=== PATIENT | male | born 1945 | race Caucasian/White ===

== ENCOUNTER 2017-01-02 10:43 | Inpatient (IN) | payer OTHER, MEDICARE ==
--- NOTE | ~2017-01-02 | CN ---
Consultation Report [facility] [address] [place]. [address] NAME: ERLIN THOMAS : 43 STATUS : ADM IN [facility]#: [id number] AGE: 71 ADM/REG DATE : 01/02/17 MR#: [id number] REPORT SERV DATE: 01/03/17 DICTATED BY: RAMÓN DAS V. DATE: 01/02/17 REPORT STATUS : Draft TRANSCRIBED BY: MODL DATE: 01/02/17 RENAL CONSULT DATE OF CONSULTATION: 01/02/2017 REASON FOR CONSULTATION: Consultation regarding advanced chronic kidney disease. HISTORY OF PRESENT ILLNESS: Mr. Thomas is a 71-year-old gentleman status post living unrelated donor transplant in 2003 and also status post heart transplant in 1994. He has chronic kidney disease stage 5 with progressive azotemia and uremic symptoms. He was admitted today by Dr. Soni for access creation and PermCath placement. The patient has been having some worsening fatigue and his appetite has been less than robust. Currently, he denies any nausea or vomiting, but he does have some lower extremity discomfort. PAST MEDICAL HISTORY: 1. Prior ESRD, status post renal transplant as described above. 2. Hypertension. 3. CHF with EF of 35%, coronary artery disease, history of biventricular pacemaker placement, history of heart transplant as described above, now status post fistula creation and PermCath placement. ALLERGIES: INCLUDE CLONIDINE AND COREG. SOCIAL HISTORY: . No alcohol or tobacco use. HOME MEDICATIONS: Tylenol, amlodipine, baby aspirin, Coenzyme Q10, Colace, Trusopt eye drops, Cardura, famotidine, finasteride, Xalatan eye drops, prednisone 5 mg daily, Florastor, sodium bicarbonate, Prograf 2 mg twice a day, torsemide 100 mg twice a day, and Fiber-Lax. REVIEW OF SYSTEMS: All review of systems are negative except as described above. FAMILY HISTORY: Negative for any chronic kidney disease. PHYSICAL EXAMINATION: VITAL SIGNS: The patient was afebrile with a heart rate of 79, blood pressure 133/75. GENERAL: He is a pleasant elderly gentleman with no increased work of breathing. HEENT: Pupils equal, round, and reactive to light. Sclerae are anicteric. Oropharynx is clear with no lesions. NECK: Trachea midline. No thyromegaly. No supraclavicular nodes. No axillary lymph nodes. CHEST: Few decreased breath sounds in the bases bilaterally. Regular rate and rhythm. No rub. ABDOMEN: Soft, nondistended. Bowel sounds are physiologic. Right IJ PermCath in place Consultation Report [facility] [address] [place]. [address] NAME: ERLIN THOMAS : 43 STATUS : ADM IN [facility]#: [id number] AGE: 71 ADM/REG DATE : 01/02/17 MR#: [id number] REPORT SERV DATE: 01/03/17 DICTATED BY: RAMÓN DAS V. DATE: 01/02/17 REPORT STATUS : Draft TRANSCRIBED BY: MODL DATE: 01/02/17 without drainage, left forearm AV fistula. Incision site is well approximated, clean and dry. EXTREMITIES: Trace to 1+ pitting edema in lower extremities. SKIN: Warm and dry. No lower extremity rash or lesions. LABORATORY DATA: Labs are pending from this hospital stay. Most recent creatinine in our office was 4.8 on 12/30/2016. Potassium was 3.8. IMPRESSION: A 71-year-old gentleman with now end-stage renal disease, in need of dialysis initiation. He also has chronic lower extremity discomfort, which he attributes to his poor renal function. The patient had successful placement of the above mentioned access procedures with the intent to start hemodialysis this admission. PLAN: 1. Plan for dialysis tomorrow using the right IJ PermCath. 2. Labs to be obtained with dialysis. 3. Hepatitis study. Hepatitis B surface antigen specifically to be done with dialysis. 4. The patient states he has a dialysis slide at the [facility] on 01/05/2017 at 1:15 p.m. Thank you for allowing us to participate in the care of this patient. MICHEL/NOA Ramón Das M.D. / [id number] CC: Sarabjit Soni M.D.
--- NOTE | ~2017-01-02 | OP ---
Record Of Operation [facility] [address] [place]. [address] NAME: ERLIN THOMAS : 43 STATUS : ADM IN PAT#: [id number] AGE: 71 ADM/REG DATE : 01/02/17 MR#: [id number] REPORT SERV DATE: 01/02/17 DICTATED BY: SARABJIT SONI DATE: 01/02/17 REPORT STATUS : Draft TRANSCRIBED BY: MODL DATE: 01/02/17 DATE OF PROCEDURE: 01/02/2017 PREOPERATIVE DIAGNOSIS: End-stage renal disease. POSTOPERATIVE DIAGNOSIS: End-stage renal disease. PROCEDURES: 1. Left radiocephalic fistula. 2. PermCath placement right IJ. SURGEON: Sarabjit Soni M.D. ANESTHESIA: Local with sedation. COMPLICATIONS: None. BLOOD LOSS: Minimal. HISTORY: The patient is a 71-year-old male in need of access for dialysis. He was felt to benefit from PermCath placement and fistula placement. We discussed with the patient in detail. He expressed understanding and desire to proceed. DESCRIPTION OF PROCEDURE: The patient was taken to the operating room and placed in the supine position. Given IV sedation with complication, left arm, chest and neck were prepped and draped in sterile fashion. Ultrasound confirmed adequate cephalic vein to the wrist on the left. 1% lidocaine was infiltrated in the skin and subcutaneous tissues at the wrist and a longitudinal incision created. Dissection was performed to identify the cephalic vein which was of good size. It measured 3 mm. It was freed circumferentially at a branch point. Attention was turned medially and dissection performed to identify the radial artery which was freed circumferentially. This was measured 2.5 mm. The patient was given 3000 units of heparin intravenously. The vein was dissected distally as possible, ligated with clips, divided proximal to the clips, and spatulated through the branch point to create a wide mouth for anastomosis. The artery was controlled proximally and distally with vascular clamps. An 11 blade was used to create arteriotomy, which was extended with Berkowitz scissors. The vein was sewn end-to-side artery with running 6-0 Prolene suture. Upon completion, flow was restored. The vein was dissected proximally. Distal branches were identified and controlled with clips and divided. The vein developed an excellent thrill. A single bleeding point along the anastomosis was controlled with 6-0 Prolene suture. Fibrillar was placed in the wound. Once hemostasis felt to be adequate, subcutaneous tissues were closed with 3-0 Vicryl suture and skin closed with 4-0 Monocryl suture. Attention was turned to the right neck. Ultrasound confirmed patent internal jugular vein by compression. 1% lidocaine was infiltrated. Under ultrasound guidance, 18-gauge needle placed into the internal jugular vein. Wire was passed into the SVC and IVC which was confirmed with fluoroscopy. The needle was removed. A site for PermCath exit was chosen on Record Of Operation [address] [address] NAME: ERLIN THOMAS : 43 STATUS : ADM IN PAT#: [id number] AGE: 71 ADM/REG DATE : 01/02/17 MR#: [id number] REPORT SERV DATE: 01/02/17 DICTATED BY: SARABJIT SONI DATE: 01/02/17 REPORT STATUS : Draft TRANSCRIBED BY: MODL DATE: 01/02/17 the chest wall. 1% lidocaine was infiltrated here. 11 blade was used to create an exit site for the PermCath and to enlarge the access site. A 24 curved PermCath was tunneled from the exit site to the access site. Under fluoroscopic guidance, the peel-away sheath and dilator passed over the wire into the SVC. The wire and dilator removed. The catheter was placed through the peel-away sheath. The sheath was peeled away without difficulty. Both ports aspirated and flushed without difficulty. They were locked with full strength heparin. The access site and exit site were closed with 4-0 Monocryl suture. The PermCath was secured to the chest wall with Ethilon suture. Sterile dressing applied. The patient tolerated the procedure well. He will be taken to recovery room and admitted for initiation of dialysis. USMAN/NOA Sarabjit Soni M.D. / [id number] CC: Sarabjit Soni M.D.
--- NOTE | ~2017-01-02 | HP ---
History And Physical [address] [place]. [address] NAME: ERLIN THOMAS : 43 STATUS : ADM IN [facility]#: [id number] AGE: 71 ADM/REG DATE : 01/02/17 MR#: [id number] REPORT SERV DATE: 01/02/17 DICTATED BY: YAZMIN SONI DATE: 01/02/17 REPORT STATUS : Draft TRANSCRIBED BY: MODL DATE: 01/02/17 DATE OF ADMISSION: 01/02/2017 HISTORY: The patient is a 71-year-old male with a history of renal transplant and heart transplant. He needs to initiate dialysis due to failure of kidney transplant. He presents today for PermCath placement and fistula placement. He has no current complaints. REVIEW OF SYSTEMS: He denies any fever, chills, or systemic complaints. He denies chest pain or palpitations. He denies shortness of breath or cough. He denies any GI complaints. MEDICATIONS: Listed in full on the DEC. ALLERGIES: LISTED IN FULL ON THE DEC. ILLNESSES: End-stage renal disease, hypertension, CHF, and history of heart and kidney transplant. SURGICAL HISTORY: Significant for heart transplant, kidney transplant, previous left arm fistula, cholecystectomy, and tonsillectomy. SOCIAL HISTORY: Remote tobacco use. FAMILY HISTORY: Noncontributory. PHYSICAL EXAMINATION: GENERAL: The patient is in no distress. VITAL SIGNS: Blood pressure 124/73 and pulse 77. LUNGS: Clear. HEART: Regular. NEUROLOGIC: He is alert and oriented. Preserved motor function in bilateral lower extremities. He has a palpable radial pulses bilaterally. Vein mapping from our office showed adequate cephalic vein in the left arm for fistula placement. IMPRESSION: End-stage renal disease in need of dialysis initiation. We are going to plan a PermCath to initiate dialysis and a left arm fistula for long-term dialysis access. This was discussed in detail with the patient. He expressed understanding and desired to proceed. USMAN/NOA Yazmin History And Physical [address] [place]. [address] NAME: ERLIN THOMAS : 43 STATUS : ADM IN PAT#: [id number] AGE: 71 ADM/REG DATE : 01/02/17 MR#: [id number] REPORT SERV DATE: 01/02/17 DICTATED BY: YAZMIN SONI DATE: 01/02/17 REPORT STATUS : Draft TRANSCRIBED BY: MODL DATE: 01/02/17 Murray Soni M.D. / [id number] CC: Yazmin Soni M.D. NO PCP
[~2017-01-02 10:43] MED LIST: ASAB PO; AUG500 PO; CARDU2 PO; CO Q-10200 MG PO; COQ-1010 MG PO; COREG12 PO; COREG3 PO; COREG6 PO; DEMA100 PO; DORZOLAMIDE2 % OPH; DSS PO; ELIQUIS 2.5 MG2.5 MG PO; FIBER; FIBERLAX PO; FLOMAX4 PO; FLORASTOR250 MG PO; L40 PO; L80 PO; MAGNEBIND PO; NORV10 PO; P5 PO; PEP20 PO; PROGRAF1 PO; PROSCAR5 PO; REVATIO20 PO; ROCALTROL 0.0.25 MCG PO; ROCALTROL0.25 MCG PO; SB325 PO; SODBICAR10 PO; STOOL PO; T PO; TRUSOPT2 % OPH; ULTRAM50 PO; XALAT OPH
[2017-01-03 06:34] LABS: BASOPHILS 0.2 %; BASOPHILS ABSOLUTE 0.01 10/3/uL (0.0-0.16); EOSINOPHILS 1.8 %; HEMATOCRIT 34.5 % (40.0-51.0); HEMOGLOBIN 11.2 g/dL (13.6-17.8); IMMATURE GRANULOCYTES 0.2 %; IMMATURE GRANULOCYTES ABSOLUTE 0.01 10/3/uL (0.0-0.11); LYMPHOCYTES 11.8 %; LYMPHOCYTES ABSOLUTE 0.65 10/3/uL (0.67-4.30); MANUAL DIFF NO %; MEAN CORPUS HGB CONC 32.5 g/dL (32.0-36.0); MEAN CORPUSCULAR HEMOGLOB 31.2 pg (26.0-34.0); MEAN CORPUSCULAR VOLUME 96.1 fL (80-100); MEAN PLATELET VOLUME 10.1 fL (9.2-13.0); MONOCYTES 5.6 %; MONOCYTES ABSOLUTE 0.31 10/3/uL (0.21-1.20); NEUTROPHILS 80.4 %; NEUTROPHILS ABSOLUTE 4.42 10/3/uL (2.02-8.40); PLATELET COUNT 106 10/3/uL (150-400); RBC DISTRIBUTION WIDTH 15.6 % (12.0-16.0); RED CELL COUNT 3.59 10/6/uL (4.7-6.1); WHITE BLOOD CELLS 5.5 10/3/uL (4.5-10.5)
[2017-01-03 06:39] LABS: ALBUMIN 3.5 G/DL (3.5-5.0); CHLORIDE, SERUM 105 MMOL/L (96-112); CO2 (CARBON DIOXIDE) 26 MMOL/L (24-34); GFR AFRICAN AMERICAN 17 ML/MIN (>=60); GFR NON AFRICAN AMERICAN 15 ML/MIN (>=60); GLUCOSE, SERUM 115 MG/DL (60-99); POTASSIUM, SERUM 3.5 MMOL/L (3.5-5.3); SODIUM, SERUM 144 MMOL/L (135-148)
[2017-01-03 06:44] LABS: BUN (BLOOD UREA NITROGEN) 69 MG/DL (6-23); CREATININE 3.87 MG/DL (0.70-1.30)
[2017-01-05 10:31] LABS: HEPATITIS C ANTIBODY NON-REACTIVE (NON-REACT)
[2017-01-05 10:32] LABS: HEPATITIS B CORE AB IGM NON-REACTIVE (NON-REAC)
[2017-01-05 10:33] LABS: HEP A ANTIBODY IGM NON-REACTIVE (NON-REACT)
[2017-01-05 10:40] LABS: HEPATITIS B SURFACE ANTIGEN NON-REACTIVE (NON-REACT)
[2017-01-05 13:39] LABS: HIV COMBO REACTIVE (NON REAC)
[2017-01-08 13:09] LABS: HIV 1 ANTIBODY BY MULTISPOT Negative (NEG); HIV 2 ANTIBODY BY MULTISPOT Negative (NEG)
== END 2017-01-03 17:59 | disposition home or self-care (01) | DRG 252 ==
LOC: SDC 10:43 → ADMMEM 10:44
PROVIDERS: Internal Medicine Nephrology; Surgery
PROC: 031C09F Bypass Left Radial Artery to Lower Arm Vein with Autologous Venous Tissue, Open Approach (ICD-10-PCS; 2017-01-02)
PROC: 05HM33Z Insertion of Infusion Device into Right Internal Jugular Vein, Percutaneous Approach (ICD-10-PCS; 2017-01-02)
PROC: 05BF0ZZ Excision of Left Cephalic Vein, Open Approach (ICD-10-PCS; 2017-01-02 12:45)
PROC: 5A1D00Z (ICD-10-PCS; principal; 2017-01-03)
DX: I13.2 Hypertensive heart and chronic kidney disease with heart failure and with stage 5 chronic kidney disease, or end stage renal disease (principal); N18.6 End stage renal disease; Z94.1 Heart transplant status; D64.9 Anemia, unspecified; Z94.0 Kidney transplant status; E78.00 Pure hypercholesterolemia, unspecified; I50.9 Heart failure, unspecified; K21.9 Gastro-esophageal reflux disease without esophagitis; Z90.49 Acquired absence of other specified parts of digestive tract; Z98.890 Other specified postprocedural states; Z87.891 Personal history of nicotine dependence; Z99.2 Dependence on renal dialysis; Z88.8 Allergy status to other drugs, medicaments and biological substances; Z79.82 Long term (current) use of aspirin; Z79.899 Other long term (current) drug therapy
CPT/HCPCS: 36558; 36821; 77001; 80048; 80069; 80074; 85025; 86702; 87389; 93005; A9270-GY; C1750; G0257; J0690; J2250; J2270; J2405; J3010; J7507